=== PATIENT | male | born 1965 | race Caucasian/White ===

== ENCOUNTER 2017-12-14 22:36 | Emergency (ER) | payer OTHER ==
[2017-12-14] MEDS ORDERED: CHLORHEXIDINE GLUCONATE 4 % 15 ML UD TOP ONE (22:52)
[2017-12-14] MEDS ORDERED: TETANUS,DIPHTHERIA,PERTUSSIS 1 EA SYG IM ONE (22:58)
[2017-12-14 23:01] VITALS: TEMP 98.2; O2SAT 97
--- NOTE | 2017-12-14 23:32 | ED.PDOC ---
History of Present Illness - General Chief Complaint: Skin/Abrasion/Tear Stated Complaint: gored by wild hog with tusk Time Seen by Provider: 12/14/17 22:58 Source: patient Exam Limitations: no limitations - History of Present Illness Initial Comments: patient suffered a laceration earlier this evening from a wild hog tusk. They had been out hunting and actually had killed the wild hog but while trying to load him up in the truck, they dropped him. As they dropped him the task cut into his left calf. He was able to ambulate and control the bleeding but there was a large laceration with subcutaneous fat showing so he presents for sutures. They do not believe that the tasks broke but they admit that they may not have checked to see if they were intact. He does have some discomfort but no overt pain and he has normal sensation and normal range of motion. 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 Prior to this and he was in his normal usual health. Timing/Duration: just prior to arrival Severity: moderate Location: extremities Improving Factors: nothing Worsening Factors: nothing Associated Symptoms: denies symptoms Review of Systems - Review of Systems Constitutional: States: no symptoms reported. Denies: chills, fever EENTM: States: no symptoms reported Respiratory: States: no symptoms reported Cardiology: States: no symptoms reported Gastrointestinal/Abdominal: States: no symptoms reported Skin: States: see HPI Past Medical History (General) - Patient Medical History Hx Asthma: No Hx Hypertension: No Hx Cancer: Yes - skin Surgical History: other - Vaccination History Hx Tetanus, Diphtheria Vaccination: No Hx Influenza Vaccination: Yes - 2017 Hx Pneumococcal Vaccination: No Immunizations Up to Date: No - Social History Hx Tobacco Use: No Hx Alcohol Use: Yes Family Medical History - Family History Father Family History: Unknown Physical Exam - Physical Exam General Appearance: Alert, No apparent distress Eyes, Ears, Nose, Throat Exam: PERRL/EOMI, normal ENT inspection Neck: non-tender Cardiovascular/Chest: normal peripheral pulses, regular rate, rhythm, no edema, no murmur Respiratory: chest non-tender, lungs clear, normal breath sounds, no respiratory distress Gastrointestinal/Abdominal: normal bowel sounds Extremity: other - L calf with 4 cm open laceration with subcutaneous fat showing, linear abrasion extending several cm above the wound that does not go through the skin layers Neurologic: alert, oriented x 3 Progress - Progress Progress: 12/14/17 23:34 Xray shows no FB and no fracture patient is doing well and tolerated laceration repair without difficulty. He was unsure when his last tetanus shot was and this was given today. Procedures - Laceration/Wound Repair Left Calf Wound Length (cm): 4 Wound's Depth, Shape: superficial Wound Explored: contaminated Irrigated w/ Saline (cc's): 10 Betadine Prep?: No - hibaclense Anesthesia: 1% Lidocaine Volume Anesthetic (cc's): 10 Wound Debrided: moderate Wound Repaired With: sutures Suture Size/Type: 3:0 Number of Sutures: 6 Layer Closure?: No Departure - Departure Clinical Impression: Laceration of calf without complication Qualifiers: Encounter type: initial encounter Laterality: left Qualified Code(s): S81.812A - Laceration without foreign body, left lower leg, initial encounter Disposition: Discharge to Home or Self Care Condition: Good Departure Forms: ED Discharge - Pt. Copy, Patient Portal Self Enrollment Instructions: Laceration Repair With Stitches (DC) Diet: regular diet Activity: increase activity as tolerated Additional Instructions: keep area clean with warm soapy water daily and pat dry. Do not soak sutures including bathtub, hot tub, or swimming. May return to normal activity on Sunday. Patient should follow up with PCP in 7-10 days for suture removal. Return to ER or call M.D. for temp greater than 100.5, redness, swelling, or purulence.
[2017-12-14 23:50] VITALS: BP 136/86
--- NOTE | 2017-12-14 23:53 | RAD ---
EXAM: Two view(s) of the left tibia and fibula. INDICATION: Pain. COMPARISON: None. FINDINGS: No acute fracture or dislocation. Mild soft tissue swelling with subcutaneous emphysema along the medial aspect of the left lower extremity. There are changes of a left knee arthroplasty partially visualized. No radiopaque foreign body. IMPRESSION: 1. No acute fracture. Electronically signed by: Zack Madrigal MD 12/14/2017 11:52 PM CDT Workstation: [id number]
== END 2017-12-14 23:50 | disposition home or self-care (01) ==
LOC: ER 22:36
DX: S81.812A Laceration without foreign body, left lower leg, initial encounter (principal); Z23 Encounter for immunization; W55.42XA Struck by pig, initial encounter; Y92.9 Unspecified place or not applicable